=== PATIENT | male | born 1990 | race Two or more races ===

== ENCOUNTER 2018-04-13 05:42 | Day surgery (SDC) | payer BC ==
[2018-04-12 13:30] VITALS: BMI 26.4
[~2018-04-13 05:42] MED LIST: BUPIVACAINE HCL/PF (5 MG/ML) 30 ML VIAL IJ ONE
--- NOTE | 2018-04-13 10:18 | HP ---
[facility]ellite [facility] - Chief Complaint Chief Complaint: right knee pain - Past Medical History Allergies/Adverse Reactions: Allergies Allergy/AdvReac Type Severity Reaction Status Date / Time No Known Allergies Allergy Verified 04/12/18 13:20 - Current Medications Current Medications: Home Medications Medication Instructions Recorded Hydrocodone/Acetaminophen [[place] 1 each PO Q6H PRN #20 tablet MDD 4 04/13/18 5-325 Tablet] Satellite Physical Exam - Physical Examination General Appearance: Well Nourished, Well Developed, Alert & Oriented x3 ENT: Clear Lung: Normal air movement Heart: Regular rate & rhythm Extremities: Other (right knee- + swelling, + ttp, decr rom, nvi) Neurological: Intact, Alert, Oriented Satellite Impression/Plan - Impression/Plan Impression: right knee internal derangement, patella malalignment Operative Procedure: right knee arthroscopy with lateral release Date to be Performed: 04/13/18
[2018-04-13 13:41] LABS: COCAINE, UR POSITIVE ng/ml (CUTOFF=300); METHADONE, UR NEGATIVE ng/ml (CUTOFF=300); OPIATES, URI NEGATIVE ng/ml (CUTOFF=300); PHENCYCLIDINE,URINE NEGATIVE ng/ml (CUTOFF=25); URINE AMPHETAMINES NEGATIVE ng/ml (CUTOFF=500); URINE BARBITURATES NEGATIVE ng/ml (CUTOFF=200); URINE BENZODIAZEPINES NEGATIVE ng/ml (CUTOFF=200)
[2018-04-13] MEDS ORDERED: BUPIVACAINE HCL/PF 0.5% (5MG/ML) 10 ML VIAL ONE (15:16)
[2018-04-13] MEDS ORDERED: MIDAZOLAM HCL 2 MG/2 ML SINGLE DOSE VIAL ONE (16:00)
[2018-04-13] MEDS ORDERED: GLYCOPYRROLATE 0.2 MG/1 ML VIAL ONE (16:07)
[2018-04-13] MEDS ORDERED: DEXAMETHASONE SOD PHOSPHATE 4 MG/1 ML VIAL ONE (16:08)
[2018-04-13] MEDS ORDERED: LIDOCAINE HCL/PF 2% SDV 5ML VIAL ONE (16:09)
[2018-04-13] MEDS ORDERED: PROPOFOL 20 ML ONE (16:09)
[2018-04-13] MEDS ORDERED: ePHEDrine SULFATE 50 MG/1 ML AMPULE ONE (16:15)
[2018-04-13] MEDS ORDERED: ceFAZolin SODIUM 1 GM VIAL ONE (16:16)
[2018-04-13] MEDS ORDERED: BUPIVACAINE HCL/PF (5 MG/ML) 30 ML VIAL IJ ONE (16:55)
--- NOTE | 2018-04-13 16:57 | OP ---
Operative Note - Note: Operative Date: 04/13/18 Pre-Operative Diagnosis: right knee patella femoral malalignment Operation: right knee arthroscopy, lateral release Post-Operative Diagnosis: Same as Pre-op Surgeon: Real Jarquin Anesthesiologist/CUSTOMER CONTACT REPRESENTATIVE: Quintin Giordano Anesthesia: General, Local Estimated Blood Loss (mls): 0 Drains, Volume Out (mls): 0 Blood Volume Replaced (mls): 0 Fluid Volume Replaced (mls): 500 Operative Report Dictated: Yes
[2018-04-13] MEDS ORDERED: oxyCODONE HCL 5 MG TABLET PO PRN (17:06)
[2018-04-13] MEDS ORDERED: ONDANSETRON 4 MG/2 ML VIAL IVPUSH PRN (17:06)
[2018-04-13] MEDS ORDERED: LACTATED RINGERS SOLUTION 1,000 ML IV SCH (17:15)
[2018-04-13 17:27] VITALS: TEMP 98.2
--- NOTE | 2018-04-13 19:19 | OP ---
DATE OF OPERATION: 04/13/2018 PREOPERATIVE DIAGNOSIS: Right knee pain, patellofemoral malalignment. POSTOPERATIVE DIAGNOSIS: Right knee pain, patellofemoral malalignment. PROCEDURE: Right knee arthroscopy, arthroscopic lateral release. SURGEON: Kathleen Newman MD [employer] SUPERVISOR: None. ANESTHESIOLOGIST: Desmond Valencia MD ANESTHESIA: LMA anesthesia with local injection of 20 mL of 0.5% Marcaine. DRAINS: None. COMPLICATIONS: None. SPECIMENS: None. BLOOD LOSS: None. BLOOD GIVEN: None. FLUID INFILTRATION: 500 mL INDICATIONS: This patient is a 27-year-old male with a preoperative diagnosis of right knee painful patellofemoral malalignment. After understanding the potential risks, complications, alternatives, and benefits of surgery and the risks of anesthesia with surgical treatment, the patient elected to undergo this procedure. DESCRIPTION OF PROCEDURE: The patient was brought to the operating room, peripheral IV placed, and IV sedation given. Then 2 g of IV Ancef was given. LMA anesthesia was induced. Ample padding was placed around the right upper thigh including the Styrofoam ring. The right lower extremity was placed in the C-clamp leg jason. It was prepped and draped in the sterile fashion. Elevated, exsanguinated with Esmarch bandage, and tourniquet inflated to 275 mmHg. A superior medial outflow portal was established. A medial portal was established. Under direct visualization the lateral portal was established. A probe was introduced into the joint. Diagnostic arthroscopy was performed. The patient was seen to have an intact and pristine lateral compartment including lateral meniscus and medial compartment including medial meniscus and intracondylar notch including the ACL, which had the appropriate tension. The patellofemoral joint looked good in the sense that the femoral trochlea looked good without any grooving or osteoarthritis. The undersurface of the patella looked good except for the lateral facet. Overall it looked good. The patient did have significant patellofemoral malalignment and the tracking of the patella in the trochlear groove was directly visualized through full range of motion. It seemed to never get down into the groove. It was always on the lateral ridge. There was significant patellar tilt. This was all photographed. There was significant patellar overhang of approximately 40% of the patella laterally. I next put a spinal needle on the superolateral aspect of the knee joint and lateral to the quadriceps tendon. This was our intraarticular marker. I can see it from the arthroscope. I then pushed the lateral retinaculum in line with my thumb from the intraarticular marker down to the level of the knee joint. I was able to deena the lateral side of the joint with this maneuver. Next I used the ArthroCare wand through the lateral portal and did a right knee arthroscopic lateral release. The lateral tissue was quite tight including the lateral patellofemoral ligament, which was released. Immediately tension was released and the patella was able to move more into the central aspect of the trochlear groove. I also was able to push the patella over, stretching further. Overall you could see the tension release as I did the lateral release. The area was irrigated and washed out. All of the excess saline was removed. The arthroscopy portals were closed with 3-0 nylon suture. Then 20 mL of 0.5% Marcaine was introduced into the joint. The portals were covered with Xeroform gauze, 4 x 4 gauze, Webril, and an Shemar bandage. A tourniquet was taken down after a total tourniquet time of 21 minutes. There were no complications during the case. The patient tolerated the procedure well and was brought to the ambulatory recovery room in stable condition. KATHLEEN NEWMAN M.D. [id number]
[2018-04-13 20:51] VITALS: BP 115/68; PULSE 68
--- NOTE | 2018-04-15 14:43 | PATH ---
Surgical Pathology Report Patient Name: LUISA LANGFORD Med. Rec. #: [id number] /Age/Gender: 1990 (Age: 27) / M Account: [id number] Location: [facility] Taken: 04/13/2018 Received: 04/14/2018 Reported: 04/15/2018 Physicians: Real Jarquin M.D. Specimen(s) Received RIGHT KNEE SHAVINGS Clinical History Right knee tear Final Diagnosis KNEE SHAVINGS, RIGHT, ARTHROSCOPY: FRAGMENTS OF FIBROVASCULAR TISSUE, ADIPOSE TISSUE, AND SYNOVIUM. Electronically Signed Yoselin Acosta M.D. Gross Description Received in formalin, labeled "right knee shavings," is a 4.4 x 4.0 x 0.7 cm. aggregate of bermeo-yellow soft tissue fragments. A sales account representative portion is submitted in one cassette. /04/14/2018 saudi04/14/2018
== END 2018-04-13 19:40 | disposition home or self-care (01) ==
LOC: JASU-SURG 05:42
PROVIDERS: ATTEND Orthopaedic Surgery
PROC: 0MNN4ZZ Release Right Knee Bursa and Ligament, Percutaneous Endoscopic Approach (ICD-10-PCS; principal; 2018-04-13 14:30)
DX: M22.2X1 Patellofemoral disorders, right knee (principal)
CPT/HCPCS: 80307; 88304-TC; 94760; 97116-GP